=== PATIENT | male | born 2000 | race Two or more races ===

== ENCOUNTER 2023-10-18 22:53 | Emergency (ER) | payer MEDICAID ==
[~2023-10-18] VITALS: Ht 175.3 cm; Wt 70.4 kg
[~2023-10-18 22:53] MED LIST: IBUP100S11
[2023-10-19 02:02] VITALS: BP 124/66; PULSE 106; RESP 16; TEMP 98.9; O2SAT 94
[2023-10-19] MEDS ORDERED: IBUP-1456 PO (02:22)
== END 2023-10-19 02:27 | disposition home or self-care (01) ==
LOC: ER 22:53
DX: S90.122A Contusion of left lesser toe(s) without damage to nail, initial encounter (principal); J45.909 Unspecified asthma, uncomplicated; Z79.1 Long term (current) use of non-steroidal anti-inflammatories (NSAID); W22.8XXA Striking against or struck by other objects, initial encounter; Y93.89 Activity, other specified; Y92.89 Other specified places as the place of occurrence of the external cause; Y99.8 Other external cause status
CPT/HCPCS: 73630

== ENCOUNTER 2024-01-23 18:40 | Inpatient (IN) | payer MEDICAID ==
[~2024-01-23] VITALS: Ht 172.7 cm; Wt 121.6 kg
[~2024-01-23 18:40] MED LIST changes: +IBUP-1456 PO
[2024-01-23] MEDS: SODIUM CHLORIDE 0.9% 1,000 ML IV ONE (19:15)
[2024-01-23] MEDS: NALOXONE HCL 1MG/ML 2ML SYRINGE ONE (19:47)
[2024-01-23 19:51] VITALS: PULSE 122; RESP 22; O2SAT 95
[2024-01-23] MEDS: NALOXONE HCL 1MG/ML 2ML SYRINGE IV ONE ×2 (20:00)
[2024-01-23 20:52] LABS: Basophils # (auto) 0.1 10 ^3/uL (0-0.2); Basophils % (auto) 0.7 % (0.0-2.0); Eosinophils # (auto) 0.3 10 ^3/uL (0-0.8); Eosinophils % (auto) 2.7 % (0.0-7.0); Hematocrit 47.6 % (41.0-53.0); Hemoglobin 16.1 g/dL (13.5-17.5); Lymphocytes # (auto) 3.4 10 ^3/uL (0.4-5.4); Lymphocytes % (auto) 35.6 % (10.0-50.0); Mean Corpuscular Hemoglobin 31.5 pg (28.0-32.0); Mean Corpuscular Hgb Conc. 33.9 g/dL (32.0-36.0); Mean Corpuscular Volume 92.7 fL (80.0-100.0); Monocytes # (auto) 0.6 10 ^3/uL (0-1.3); Monocytes % (auto) 6.7 % (0.0-12.0); Neutrophils # (auto) 5.2 10 ^3/uL (1.6-8.6); Neutrophils % (auto) 54.3 % (37.0-80.0); Nucleated Red Blood Cells % 0.4 %; Red Blood Cells 5.13 10^6/uL (4.5-5.90); Red Cell Distribution Width 13.5 % (11.8-14.3); White Blood Cell 9.6 10^3/uL (4.4-10.8)
[2024-01-23 21:05] LABS: Acetaminophen < 2.0 UG/ML (10.0-20.0)
[2024-01-23 21:06] LABS: Alanine Aminotransferase 32 U/L (7-40); Alkaline Phosphatase 127 U/L (46-116); Anion Gap 8 (5-15); Aspartate Aminotransferase 32 U/L (13-40); BUN/Creatinine Ratio 10.3 (10.0-20.0); Blood Urea Nitrogen 8 mg/dL (9-23); Calcium 8.9 mg/dL (8.5-10.1); Carbon Dioxide 24 mmol/L (20-30); Chloride 110 mmol/L (98-107); Glucose 94 mg/dL (74-106); Potassium 3.9 mmol/L (3.5-5.1); Sodium 142 mmol/L (136-145)
[2024-01-23 21:07] LABS: Albumin 4.6 g/dL (3.2-4.8); Bilirubin, Total 0.3 mg/dL (0.2-1.0); Total Protein 7.8 g/dL (5.7-8.2)
[2024-01-23 21:22] LABS: Salicylate < 3.0 mg/dL (2.8-20.0)
[2024-01-23] MEDS ORDERED: MORPHINE SULFATE INJ 2 MG/ml SYRG IV PRN (21:45)
[2024-01-23] MEDS ORDERED: ONDANSETRON HCL 4 MG/2 ML VIAL IV PRN (21:45)
[2024-01-23] MEDS ORDERED: NITROGLYCERIN 0.4 MG SL TAB SL PRN (21:45)
[2024-01-23] MEDS: HALOPERIDOL LACTATE 5 MG/ML INJ VIAL IM ONE (21:54)
[2024-01-23 21:55] LABS: Blood Alcohol 457.9 mg/dL (<10)
[2024-01-23] MEDS: diphenhdrAMINE HCL 50 MG/1 ML VL IV ONE (21:58)
[2024-01-23] MEDS: SODIUM CHLORIDE 0.9% 1,000 ML IV SCH (21:58)
[2024-01-23 22:03] LABS: Base Excess -3.6 mmol/L (-2.0-2.0)
[2024-01-24 02:20] LABS: Urine Bacteria None Seen /hpf (None Seen)
[2024-01-24 02:52] LABS: Urine Blood Negative /uL (Negative); Urine Clarity Clear (Clear); Urine Color Light-Yellow (Yellow); Urine Mucus FEW (None Seen); Urine Protein, UAD Negative (Negative); Urine Specific Gravity 1.011 (1.001-1.035); Urine Urobilinogen Normal (Negative); Urine WBC 1 /hpf (0 - 3)
[2024-01-24 02:56] LABS: Amphetamine Screen, Urine Neg (NEGATIVE); Barbiturate Scree,Urine Neg (NEGATIVE); Benzodiazephine Screen, Urine Pos (NEGATIVE); Cannabinoid Screen, Urine Neg (NEGATIVE); Cocaine Screen, Urine Neg (NEGATIVE); Opiate Scree,Urine Neg (NEGATIVE); Phencyclidine Screen, Urine Neg (NEGATIVE)
[2024-01-24 03:45] VITALS: PULSE 93; RESP 24; O2SAT 98
[2024-01-24 06:08] LABS: Basophils # (auto) 0 10 ^3/uL (0-0.2); Basophils % (auto) 0.4 % (0.0-2.0); Eosinophils # (auto) 0.1 10 ^3/uL (0-0.8); Eosinophils % (auto) 1.7 % (0.0-7.0); Hematocrit 45.2 % (41.0-53.0); Hemoglobin 15.2 g/dL (13.5-17.5); Lymphocytes % (auto) 35.1 % (10.0-50.0); Mean Corpuscular Hemoglobin 31.8 pg (28.0-32.0); Mean Corpuscular Hgb Conc. 33.7 g/dL (32.0-36.0); Mean Corpuscular Volume 94.2 fL (80.0-100.0); Monocytes # (auto) 0.8 10 ^3/uL (0-1.3); Monocytes % (auto) 8.9 % (0.0-12.0); Neutrophils # (auto) 4.7 10 ^3/uL (1.6-8.6); Neutrophils % (auto) 53.9 % (37.0-80.0); Nucleated Red Blood Cells % 0.1 %; Red Cell Distribution Width 13.3 % (11.8-14.3); White Blood Cell 8.6 10^3/uL (4.4-10.8)
[2024-01-24 06:23] LABS: Alanine Aminotransferase 29 U/L (7-40); Albumin 4.2 g/dL (3.2-4.8); Alkaline Phosphatase 104 U/L (46-116); Aspartate Aminotransferase 32 U/L (13-40)
[2024-01-24 06:24] LABS: Anion Gap 8 (5-15); BUN/Creatinine Ratio 10.7 (10.0-20.0); Bilirubin, Total 0.2 mg/dL (0.2-1.0); Blood Urea Nitrogen 8 mg/dL (9-23); Calcium 8.3 mg/dL (8.5-10.1); Carbon Dioxide 23 mmol/L (20-30); Chloride 113 mmol/L (98-107); Glucose 73 mg/dL (74-106); Potassium 4.3 mmol/L (3.5-5.1); Sodium 144 mmol/L (136-145); Total Protein 6.9 g/dL (5.7-8.2)
[2024-01-24 07:15] VITALS: PULSE 96; RESP 17; O2SAT 99
[2024-01-24 19:30] VITALS: PULSE 112; RESP 13; O2SAT 9
[2024-01-24 21:00] VITALS: PULSE 89; RESP 20; O2SAT 98
[2024-01-25] VITALS (10 sets, daily range): BP systolic 116–142; BP diastolic 57–92; PULSE 71–116; RESP 16–22; TEMP 97.8–99; O2SAT 95–98
[2024-01-25] MEDS ORDERED: BECL40AE11 INH (03:45)
[2024-01-25] MEDS ORDERED: ALBU108A5 INH (03:45)
[2024-01-25 06:45] LABS: Alanine Aminotransferase 21 U/L (7-40); Albumin 3.9 g/dL (3.2-4.8); Alkaline Phosphatase 85 U/L (46-116); Anion Gap 8 (5-15); Aspartate Aminotransferase 27 U/L (13-40); BUN/Creatinine Ratio 11.3 (10.0-20.0); Bilirubin, Total 1.1 mg/dL (0.2-1.0); Blood Urea Nitrogen 8 mg/dL (9-23); Calcium 9.3 mg/dL (8.7-10.4); Carbon Dioxide 25 mmol/L (20-30); Chloride 104 mmol/L (98-107); Glucose 82 mg/dL (74-106); Potassium 3.5 mmol/L (3.5-5.1); Sodium 137 mmol/L (136-145); Total Protein 6.6 g/dL (5.7-8.2)
[2024-01-25] MEDS ORDERED: IPRATROPIUM BROM 0.5 MG/2.5ML INH SOL NEB PRN (16:45)
[2024-01-25] MEDS ORDERED: ALBUTEROL SULF 2.5 MG/0.5ML(0.5%) NEB SOLN NEB PRN (16:45)
[2024-01-26 10:25] VITALS: O2SAT 96
== END 2024-01-26 00:35 | DRG 812 ==
LOC: EDBD 18:40 → ER 18:40 → TELE 21:46 → TELE-WESTW 01-25 00:43
PROVIDERS: ADMIT Nurse Practitioner; ATTEND Nurse Practitioner Acute Care
DX: T50.991A Poisoning by other drugs, medicaments and biological substances, accidental (unintentional), initial encounter (principal); G92.8 Other toxic encephalopathy; M62.82 Rhabdomyolysis; F19.10 Other psychoactive substance abuse, uncomplicated; E66.9 Obesity, unspecified; F32.9 Major depressive disorder, single episode, unspecified; I10 Essential (primary) hypertension; I48.91 Unspecified atrial fibrillation; J45.909 Unspecified asthma, uncomplicated; F41.9 Anxiety disorder, unspecified; F17.200 Nicotine dependence, unspecified, uncomplicated; Z68.41 Body mass index [BMI] 40.0-44.9, adult; Z79.899 Other long term (current) drug therapy; Z81.8 Family history of other mental and behavioral disorders; Y92.89 Other specified places as the place of occurrence of the external cause
CPT/HCPCS: 36415; 36600; 70450; 71045; 80053; 80307; 80320; 80329; 81001; 82550; 82805; 83880; 84484; 85025; 93005; G0378